=== PATIENT | male | born 1945 | race African-American/Black ===

== ENCOUNTER 2020-10-15 00:49 | Emergency (ER) | payer MEDICARE, MEDICAID ==
[~2020-10-15] VITALS: Ht 167.6 cm; Wt 75.0 kg
[2020-10-15 06:23] VITALS: BP 145/87
== END 2020-10-15 06:42 | disposition home or self-care (01) ==
LOC: ER 00:49
DX: K40.90 Unilateral inguinal hernia, without obstruction or gangrene, not specified as recurrent (principal); R03.0 Elevated blood-pressure reading, without diagnosis of hypertension
CPT/HCPCS: 99281

== ENCOUNTER 2021-12-09 13:59 | Emergency (ER) | payer MEDICARE, MEDICAID ==
[~2021-12-09] VITALS: Ht 165.1 cm; Wt 74.0 kg
[2021-12-09 14:49] LABS: HEMATOCRIT. 36.4 % (42.0-52.0); HEMOGLOBIN. 12.4 g/dL (14.0-18.0); MEAN CORPUSCULAR HEMOGLOBIN 31.1 pg (28.0-32.0); MEAN PLATELET VOLUME 9.4 fl (7.4-10.4); PLATELET 81 x1000/uL (130-400); RED BLOOD CELL COUNT 3.99 mill/uL (4.7-6.1); RED CELL DISTRIBUTION WIDTH 14.7 % (11.6-14.6)
[2021-12-09 14:52] LABS: CHLORIDE 107 mEq/L (98-107)
[2021-12-09 15:10] LABS: PLATELET ESTIMATE DECREASED
[2021-12-09] MEDS ORDERED: MAGNESIUM/ALUMINUM HYDROXIDE/SIMETHICONE 30ML UDC PO STA (18:10)
[2021-12-09] MEDS ORDERED: FAMOTIDINE 20MG TABLET PO ONE (18:15)
[2021-12-09] MEDS ORDERED: POTASSIUM CHLORIDE 20MEQ TABLET SR PO ONE (18:45)
[2021-12-09 18:47] LABS: CLARITY URINE CLEAR (CLEAR); COLOR URINE DARK YELLOW (YELLOW); KETONES URINE TRACE (NEGATIVE); LEUKOCYTE ESTERASE URINE NEGATIVE (NEGATIVE); NITRITE URINE NEGATIVE (NEGATIVE); OCCULT BLOOD URINE NEGATIVE (NEGATIVE); PH URINE 5.5 (4.5-8.0); PROTEIN URINE 1+ (NEGATIVE); SPECIFIC GRAVITY URINE 1.033 (1.005-1.030)
[2021-12-09] MEDS ORDERED: FAMO-135 MT (19:35)
[2021-12-09 19:47] VITALS: BP 145/92
== END 2021-12-09 19:48 | disposition home or self-care (01) ==
LOC: ER 14:24
DX: R10.12 Left upper quadrant pain (principal); D72.829 Elevated white blood cell count, unspecified; R07.89 Other chest pain; D69.6 Thrombocytopenia, unspecified; I10 Essential (primary) hypertension; R05.9 Cough, unspecified
CPT/HCPCS: 36415; 71045; 74176; 80053; 81003; 83880; 84484; 85025; 93005; 99285